=== PATIENT | male | born 1990 | race Caucasian/White ===

== ENCOUNTER 2023-01-31 09:34 | Emergency (ER) | payer BC, SELFPAY ==
--- NOTE | ~2023-01-31 | XR_ITS ---
EXAMINATION: XR chest 2V DATE: 01/31/2023 10:28 INDICATION: Cough TECHNIQUE: PA and lateral views of the chest are obtained. COMPARISON: None available FINDINGS: The lungs are free of acute opacities. No pleural effusion or pneumothorax. The cardiomedia stinal silhouette is normal. The visualized bones and soft tissues are unremarkable. IMPRESSION: 1. No acute cardiopulmonary abnormality. Reviewed, dictated and finalized at location A.
[2023-01-31 09:48] VITALS: BP 154/83; PULSE 82; RESP 14; TEMP 36.7; O2SAT 100
--- NOTE | 2023-01-31 10:19 | ED.GENADULT ---
HPI - General Adult General Chief complaint: Upper Respiratory Infection Stated complaint: cough / throat Source: patient Mode of arrival: ambulatory Limitations: no limitations History of Present Illness HPI narrative: Patient presents for evaluation cough for the last 3 weeks. Cough is productive of yellow sputum. He has a sore throat which he attributes to frequent coughing. No fever, chills, nausea, vomiting or SOB. No recent sick contacts to his knowledge. He does not smoke. He has been taking mucinex for his symptoms. Related Data Allergies Allergy/AdvReac Type Severity Reaction Status Date / Time No Known Allergies Allergy Verified 01/31/23 09:53 Review of Systems Review of Systems: CONSTITUTIONAL: Denies fever, chills, or sweats. EYES: Denies visual changes, redness, or discharge. ENT: Reports sore throat. Denies rhinorrhea, congestion, or otalgia. CARDIOVASCULAR: Denies chest pain, palpitations, or edema. RESPIRATORY: Reports productive cough of yellow sputum. Denies SOB GASTROINTESTINAL: Denies abdominal pain, nausea, vomiting, or diarrhea. GENITOURINARY: Denies dysuria or hematuria. SKIN: Denies rash or itching. MUSCULOSKELETAL: Denies back pain, joint pain, or myalgia. NEUROLOGIC: Denies headache, numbness, dizziness, or weakness. PSYCHIATRIC: Denies anxiety or depression. PMFSH Past Medical History Medical History No pertinent past medical history Surgical History Surgical History No pertinent past surgical history Family History Family History Mother Family history non-contributory Social History Social History Smoking status: Never smoker Substance use: never Gender identity (if verbalized by the patient): Male Exam Narrative: GENERAL: Well-appearing, well-nourished, and in no acute distress. HEAD: Normocephalic, atraumatic. EYES: PERRLA and EOMI. ENT: Nares clear, no rhinorrhea or epistaxis. Mucous membranes moist. Oropharynx without tonsillar hypertrophy exudate or other lesions. Bilateral TMs pearly buchanan nonbulging NECK: Supple. No adenopathy or masses. No carotid bruits or JVD CHEST: Clear to auscultation. No respiratory distress. No wheezes rales or rhonchi HEART: Regular rate and rhythm. No murmur heard. Normal peripheral pulses. ABDOMEN: Soft, nontender, nondistended, normal active bowel sounds. EXTREMITIES: Normal range of motion. No edema. SKIN: Warm, dry, no rash. NEURO: No focal deficits. Alert and oriented x3. PSYCH: Normal mood and affect. Course Course Emergency Course: This is a 32-year-old male who presented for evaluation of cough. Chest x-ray, COVID, strep were all negative. Exam consistent with bronchitis. Will discharge with Tessalon. Increase hydration. [id number] agents as needed. Follow up with primary provider. Go to the ER for difficulty breathing or worsening symptoms. Patient in agreement plan of care per Level of Care: Express Care Visit Vital Signs Vital signs: Vital Signs Temperature 36.7 C 01/31/23 09:48 Pulse Rate 82 01/31/23 09:48 Respiratory Rate 14 01/31/23 09:48 Blood Pressure 154/83 H 01/31/23 09:48 Pulse Oximetry 100 01/31/23 09:48 Oxygen Delivery Room Air 01/31/23 09:48 Temperature 36.7 C 01/31/23 09:48 Pulse Rate 82 01/31/23 09:48 Respiratory Rate 14 01/31/23 09:48 Blood Pressure 154/83 H 01/31/23 09:48 Pulse Oximetry 100 01/31/23 09:48 Oxygen Delivery Room Air 01/31/23 09:48 Medical Decision Making Vital Signs Vital Signs: Vital Signs Temperature 36.7 C 01/31/23 09:48 Pulse Rate 82 01/31/23 09:48 Respiratory Rate 14 01/31/23 09:48 Blood Pressure 154/83 H 01/31/23 09:48 Pulse Oximetry 100 01/31/23
== END 2023-01-31 11:10 | disposition home or self-care (01) ==
PROVIDERS: Emergency Provider Nurse Practitioner
DX: J40 Bronchitis, not specified as acute or chronic (principal)
CPT/HCPCS: 71046; 87081; 87426; 87880; 99213; C9803; G0463

== ENCOUNTER 2024-01-08 17:30 | Emergency (ER) | payer OTHER, BC, SELFPAY ==
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
[2024-01-08 17:37] VITALS: BP 143/91; PULSE 70; RESP 18; TEMP 37.2; O2SAT 100
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
--- NOTE | 2024-01-08 18:52 | PC.NURSE ---
provider to provider report given.
== END 2024-01-08 19:01 | disposition short-term general hospital (02) ==
PROVIDERS: Emergency Provider Registered Nurse
DX: M43.12 Spondylolisthesis, cervical region (principal); S29.012A Strain of muscle and tendon of back wall of thorax, initial encounter; V49.40XA Driver injured in collision with unspecified motor vehicles in traffic accident, initial encounter; M54.2 Cervicalgia
CPT/HCPCS: 72040; 72072; 99213; G0463; L0140